=== PATIENT | female | born 1975 | race Caucasian/White ===

== ENCOUNTER 2018-12-07 11:57 | Day surgery (SDC) | payer BC, OTHER ==
[~2018-12-07] VITALS: Ht 167.6 cm; Wt 85.2 kg
[2018-12-07 12:52] VITALS: Ht 167.6 cm; Wt 85.2 kg
[2018-12-07] MEDS ORDERED: LIDOCAINE 100 MG SYRINGE ONE (13:16)
[2018-12-07] MEDS ORDERED: PROPOFOL 20 ML ONE (13:16)
--- NOTE | 2018-12-07 13:20 | PREAC ---
Date/Time of Note Date/Time of Note DATE: 12/07/18 TIME: 13:19 Anesthesia Eval and Record Evaluation Time Pre-Procedure Interview DATE: 12/07/18 TIME: 13:19 Age 43 Sex female NPO: 8 hrs Preoperative diagnosis Dyspepsia Planned procedure EGD Past Medical History Past Medical History: None Surgery & Anesthesia Issues No known issue Meds Anticoagulation: No Beta Terrell within 24 hr: No Reason Beta Terrell not given: Pt. not on B-Terrell Meds reviewed: Yes Allergies Allergies Reviewed: Yes Labs/Studies Labs Reviewed: Reviewed by anesthesiologist test: Negative Pre-procedure Exam Airway: Adequate mouth opening Mallampati: Mallampati I Teeth: Normal Lung: Normal Heart: Normal ASA Physical Status ASA physical status: 1 Emergency: None Planned Anesthetic General/MAC: MAC Pre-operative Attestations Prior to commencing anesthesia and surgery, the patient was re-evaluated, there was verification of: *The patient's identity *The results of appropriate recent lab work and preoperative vital signs *The above evaluation not changing prior to induction *Anesthetic plan, risk benefits, alternative and complications discussed with patient/family; questions answered; patient/family understands, accepts and wishes to proceed. TRUNG PARSON MD December 07, 2018 13:20
[2018-12-07 13:21] VITALS: BP 105/59; PULSE 72; RESP 18
[2018-12-07] MEDS ORDERED: BUPROPRION (13:25)
[2018-12-07] MEDS ORDERED: STOMACH MEDS (13:25)
--- NOTE | 2018-12-07 13:29 | HPN ---
Date/Time of Note Date/Time of Note DATE: 12/07/18 TIME: 13:29 Interval H&P Admission Note Pt. seen H&P reviewed: No system changes ROSITA HENRY December 07, 2018 13:29
[2018-12-07] MEDS ORDERED: morphine 2 MG INJ IV PRN (13:30)
--- NOTE | 2018-12-07 13:38 | PAC ---
Date/Time of Note Date/Time of Note DATE: 12/07/18 TIME: 13:38 Post-Anesthesia Notes Post-Anesthesia Note Last documented vital signs Vital Signs Date Temp Pulse Resp B/P (MAP) Pulse Ox O2 O2 Flow FiO2 Time Delivery Rate 12/07/18 98.0 72 18 105/59 96 Room Air 13:21 (74) Activity: WNL Respiratory function: WNL Cardiovascular function: WNL Mental status: Baseline Pain reasonably controlled: Yes Hydration appropriate: Yes Nausea/Vomiting absent: Yes TRUNG PARSON MD December 07, 2018 13:38
[2018-12-07 14:02] VITALS: BP 108/72; PULSE 70; RESP 17
== END 2018-12-07 15:04 | disposition home or self-care (01) ==
LOC: GIL 11:57
PROVIDERS: ATTEND Internal Medicine Gastroenterology
DX: K21.0 Gastro-esophageal reflux disease with esophagitis (principal); K29.50 Unspecified chronic gastritis without bleeding
CPT/HCPCS: 43239; 84703; 88305; 88312; 88313; J2001; Z7610